=== PATIENT | female | born 1985 | race African-American/Black ===

== ENCOUNTER 2022-03-22 15:08 | Emergency (ER) | payer MEDICAID ==
[~2022-03-22] VITALS: Ht 190.5 cm; Wt 222.0 kg
[2022-03-22] MEDS ORDERED: CIPHCO RIGHT EAR (19:07)
[2022-03-22 19:15] VITALS: BP 148/86
== END 2022-03-22 19:15 | disposition home or self-care (01) ==
LOC: ER 15:08
DX: H60.91 Unspecified otitis externa, right ear (principal); R03.0 Elevated blood-pressure reading, without diagnosis of hypertension
CPT/HCPCS: 99281; 99283